=== PATIENT | male | born 1950 | race Caucasian/White ===

== ENCOUNTER → 2018-02-13 | Outpatient (CLI) | payer OTHER | LOC: BMCIMAGING 16:10 | PROVIDERS: ATTEND Family Medicine | DX: M25.552 Pain in left hip (principal) ==

== ENCOUNTER → 2018-03-21 | Outpatient (CLI) | payer OTHER | LOC: BMCIMAGING 16:45 | PROVIDERS: ATTEND Orthopaedic Surgery Hand Surgery | DX: M19.031 Primary osteoarthritis, right wrist (principal); M19.032 Primary osteoarthritis, left wrist ==